=== PATIENT | female | born 2000 | race Caucasian/White ===

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

== ENCOUNTER 2018-04-26 17:44 | Emergency (ER) | payer OTHER ==
[~2018-04-26] VITALS: Ht 185.4 cm; Wt 77.1 kg
== END 2018-04-26 20:39 | disposition home or self-care (01) ==
LOC: ER 17:44
DX: R55 Syncope and collapse (principal)
CPT/HCPCS: 71046; 93005; 93010; 99284-25